=== PATIENT | female | born 1950 ===

== ENCOUNTER 2018-07-08 06:18 | Day surgery (SDC) | payer MEDICARE, MEDICAID ==
[2018-07-08] MEDS ORDERED: Lactated Ringer's 500 ML IV ONE (08:12)
[2018-07-08] MEDS ORDERED: Propofol 10 mg/ml Inj (20 ML) ONE (08:15)
[2018-07-08] MEDS ORDERED: Lidocaine Hydrochloride 5 ML INJ ONE (08:15)
[2018-07-08 08:17] VITALS: O2SAT 100
[2018-07-08 09:03] VITALS: TEMP 97.8
[2018-07-08 09:49] VITALS: BP 137/64; PULSE 65; RESP 13
== END 2018-07-08 09:47 | disposition home or self-care (01) ==
LOC: C.ENDO 06:18
PROVIDERS: ATTEND Internal Medicine Gastroenterology
DX: Z12.11 Encounter for screening for malignant neoplasm of colon (principal); K57.30 Diverticulosis of large intestine without perforation or abscess without bleeding; K64.8 Other hemorrhoids; K38.8 Other specified diseases of appendix; K21.9 Gastro-esophageal reflux disease without esophagitis; K44.9 Diaphragmatic hernia without obstruction or gangrene; K21.0 Gastro-esophageal reflux disease with esophagitis; K22.8 Other specified diseases of esophagus; K29.50 Unspecified chronic gastritis without bleeding; I10 Essential (primary) hypertension; E78.5 Hyperlipidemia, unspecified; M19.90 Unspecified osteoarthritis, unspecified site; Z98.890 Other specified postprocedural states; Z79.899 Other long term (current) drug therapy
CPT/HCPCS: 43239; 45380; 88305; J2704; J7120